=== PATIENT | male | born 1955 | race Two or more races ===

== ENCOUNTER 2016-12-21 09:36 | Emergency (ER) | payer MEDICARE, BC ==
--- NOTE | 2016-12-21 11:00 | RAD ---
Exams: Three-view bilateral knees COMPARISON: None INDICATION: Fall 2 days ago injuring both knees, left greater than right. TECHNIQUE: AP, lateral and sunrise views of both knees were obtained. FINDINGS: There is a small joint effusion on the left but no significant joint effusion on the right. Overall normal bone mineralization. Bone island is incidentally noted within the proximal left tibia, of no clinical concern. Alignment is within normal limits. No acute fracture is identified. There is minor tricompartment osteophyte formation within both knees, left slightly greater than right. There is no significant joint space narrowing. Chondrocalcinosis is noted on the left. IMPRESSION: 1. No acute osseous abnormality within either knee. 2. Small joint effusion on the left. 3. Chondrocalcinosis on the left. 4. Minor osteoarthritis within both knees, without significant joint space narrowing.
== END 2016-12-21 11:47 | disposition home or self-care (01) ==
LOC: ED 09:36
DX: M25.562 Pain in left knee (principal); M25.561 Pain in right knee; M25.462 Effusion, left knee; K21.9 Gastro-esophageal reflux disease without esophagitis; I10 Essential (primary) hypertension; E66.9 Obesity, unspecified; Z88.5 Allergy status to narcotic agent; Z91.041 Radiographic dye allergy status